=== PATIENT | male | born 1995 | race Caucasian/White ===

== ENCOUNTER 2019-07-27 20:42 | Emergency (ER) | payer BC ==
[2019-07-27 21:09] VITALS: BP 123/70
--- NOTE | 2019-07-27 21:17 | UC ---
Ear Complaint HPI - HPI Summary HPI Summary: Onset left ear pain 2 evenings ago. Tonight onset of right ear pressure. - History of Current Complaint Chief Complaint: UCEar Stated Complaint: EAR COMPLAINT Hx Obtained From: Patient Onset/Duration: Sudden Onset, Lasting Days Severity Initially: Moderate Severity Currently: Moderate Pain Intensity: 6 Associated Signs/Symptoms: Positive: URI Symptoms - Allergies/Home Medications Allergies/Adverse Reactions: Allergies Allergy/AdvReac Type Severity Reaction Status Date / Time No Known Allergies Allergy Verified 07/27/19 21:03 Home Medications: Home Medications Acetaminophen TAB* [Tylenol TAB*] 650 mg PO Q4H PRN 07/27/19 [History Confirmed 07/27/19] PMH/Surg Hx/FS Hx/Imm Hx Previously Healthy: Yes - Surgical History Surgical History: None - Family History Known Family History: Negative: Hypertension - Social History Alcohol Use: Occasionally Substance Use Type: None Smoking Status (MU): Never Smoked Tobacco - Immunization History Most Recent Tetanus Shot: 2006 Vaccination Up to Date: Yes Review of Systems All Other Systems Reviewed And Are Negative: Yes ENT: Positive: Ear Ache Is Patient Immunocompromised?: No Physical Exam Triage Information Reviewed: Yes Appearance: Well-Nourished, Ill-Appearing, Pain Distress Vital Signs: Initial Vital Signs Temp 98.9 F 07/27/19 21:06 Pulse 82 07/27/19 21:06 Resp 22 07/27/19 21:06 BP 123/70 07/27/19 21:06 Pulse Ox 98 07/27/19 21:06 Vital Signs Reviewed: Yes Eye Exam: Normal ENT: Positive: Pharyngeal erythema, TM bulging, TM dull, TM red - bilateral Dental Exam: Normal Neck exam: Normal Respiratory Exam: Normal Respiratory: Positive: Chest non-tender, Lungs clear, Normal breath sounds Cardiovascular Exam: Normal Cardiovascular: Positive: RRR, No Murmur, Pulses Normal Abdominal Exam: Normal Musculoskeletal Exam: Normal Neurological Exam: Normal Psychological Exam: Normal Skin Exam: Normal Ear Complaint Course/Dx - Course Course Of Treatment: hx obtained, exam performed, meds reviewed, treated for - Differential Dx/Diagnosis Provider Diagnosis: Otitis media Discharge ED - Sign-Out/Discharge Documenting (check all that apply): Patient Departure All imaging exams completed and their final reports reviewed: No Studies - Discharge Plan Condition: Stable Disposition: HOME Prescriptions: Amoxicillin PO (*) [Amoxicillin 875 MG (*)] 875 mg PO BID #20 tab Patient Education Materials: Ear Infection (ED) Referrals: No Primary Care Phys,NOPCP [Primary Care Provider] - Additional Instructions: 1. take the medication as prescribed. 2. Continue with the zyrtec for the next 2 weeks 3. warm compresses, ibuprofen for pain. 4. Follow up if not improving in the next week. - Billing Disposition and Condition Condition: STABLE Disposition: Home
[2019-07-27] MEDS ORDERED: Amoxicillin PO (*) 500 MG CAP PO ONE (21:20)
[2019-07-27] MEDS ORDERED: Amoxicillin PO (*) 250 MG CAP PO ONE (21:20)
== END 2019-07-27 21:37 | disposition home or self-care (01) ==
LOC: UCCORT 20:42
DX: H66.92 Otitis media, unspecified, left ear (principal)
CPT/HCPCS: 99202; A9270-GY; G0463